=== PATIENT | male | born 1950 | race Asian ===

== ENCOUNTER → 2016-09-28 | Outpatient (CLI) | payer OTHER ==
--- NOTE | ~2016-09-28 | XA170 ---
[facility] A Service of [facility] & [facility] [place] RADIOLOGY TEXT RESULTS PATIENT: KIM ASHBY LOCATION: CIVR : 50 UNIT #: [id number] AGE: [address]: Yadira Raoms MD SEX: M ORDER DR: [id number] [facility] [address] [place], [place] [address] [id number] O MR#: [id number] Acc #: [id number] NAME: KIM ASHBY : 1950 SEX: M STUDY DATE/TIME: 09/28/2016 10:41 UNIT: [facility] ROOM: STUDY DESCRIPTION: XA Paracentesis W Image Attending Physician: Yadira Ramos M.D. Referring Physician: Yadira Ramos M.D. Ordering Physician: Yadira Ramos M.D. Primary Care Physician: Yadira Ramos M.D. MEDICAL IMAGING REPORT This report is preliminary unless electronic signature is present EXAM 4-quadrant abdominal ultrasound to evaluate for ascites. HISTORY 66-year-old male with possible ascites. FINDINGS 4-quadrant abdominal wall ultrasound was performed. This demonstrated no evidence of ascites. IMPRESSION There is no evidence of ascites. Dictated by... Ken Kyle M.D. THIS IS AN ELECTRONICALLY VERIFIED REPORT Ken Kyle M.D. at 09/29/2016 4:53 PM OLIVIA/azeb TD: 09/28/2016 19:40 JOB #: [id number] MEDICAL IMAGING REPORT Page 1 of 1 COPY
[2016-09-28 09:23] LABS: HEMATOCRIT 40.4 % (38.0-50.0); MEAN CELL VOLUME 109.3 FL (83-96); MEAN CORPUSCULAR HEMOGLOBIN 35.2 PG (28-34); MEAN CORPUSCULAR HGB CONC 32.2 g/dL (30-36); MEAN PLATELET VOLUME 9.1 FL (6.5-11.5); RED BLOOD COUNT 3.69 X10e (3.90-5.60); RED CELL DISTRIBUTION WIDTH 14.3 % (11.0-15.5); WHITE BLOOD COUNT 5.3 X10e3 (4.0-10.5)
[2016-09-28 09:24] LABS: INR 1.1; PARTIAL THROMBOPLASTIN TIME 29.6 SECONDS (23.5-31.3); PROTHROMBIN TIME (PATIENT) 11.5 SECONDS (9.6-11.5)
== END | disposition home or self-care (01) ==
LOC: CIVR 08:42
PROVIDERS: Internal Medicine Hematology
DX: C18.7 Malignant neoplasm of sigmoid colon (principal)
CPT/HCPCS: 36415; 76705; 85027; 85610; 85730